=== PATIENT | female | born 1975 | race Caucasian/White ===

== ENCOUNTER 2016-10-17 20:49 | Emergency (ER) | payer OTHER ==
[2016-10-17] MEDS ORDERED: IOPAMIDOL 300 (61%) 100 ML VIAL IV ONE (20:50)
[2016-10-17] MEDS ORDERED: ONDANSETRON 4 MG/2ML 2 ML VIAL ONE (23:24)
[2016-10-17] MEDS ORDERED: LACTATED RINGERS 1,000 ML ONE (23:24)
[2016-10-17 23:34] LABS: ABSOLUTE NEUTROPHIL COUNT 6.1 K/mm3 (1.8-7.7); BASO # 0.1 K/mm3 (0.0-0.2); BASO % 0.8 % (0.2-1.0); EOS # 0.1 (0.0-0.5); EOS % 1.2 % (0.9-2.9); HEMATOCRIT 44.3 % (37.0-47.0); HEMOGLOBIN 15.1 gm/l (12.0-16.0); IMM NEUT% 0.3 % (0-1); LYMPH # 3.5 (1.0-4.8); LYMPH % 33.8 % (15-45); MEAN CELL VOLUME 81.9 fl (81.0-99.0); MEAN CORPUSCULAR HEMOGLOBIN 27.9 pg (27.0-31.0); MEAN CORPUSCULAR HGB CONC 34.1 g/dl (33.0-37.0); MEAN PLATELET VOLUME 10.1 fl (7.4-10.4); MONO # 0.6 (0.0-0.8); MONO % 5.8 % (4-12); NEUT % 58.1 % (43-75); PLATELET COUNT 371 K/mm3 (130-400); RED CELL DISTRIBUTION WIDTH 13.2 % (11.5-14.5)
[2016-10-17 23:42] LABS: URINE BILIRUBIN NEGATIVE (NEGATIVE); URINE BLOOD 2+ (NEGATIVE); URINE GLUCOSE (UA) 3+ (NEGATIVE); URINE LEUKOCYTE ESTERASE NEGATIVE (NEGATIVE); URINE NITRITE NEGATIVE (NEGATIVE); URINE PROTEIN NEGATIVE (NEGATIVE); URINE UROBILINOGEN NORMAL (0-1 mg/dl)
[2016-10-17 23:49] LABS: URINE APPEARANCE HAZY; URINE COLOR YELLOW
[2016-10-18 00:19] LABS: URINE BACTERIA FEW; URINE WBC 0-3 /hpf
[2016-10-18 00:30] LABS: ALB/GLOB RATIO 1.2 (>1.0); CALCIUM 9.5 mg/dL (8.6-10.3)
[2016-10-18] MEDS ORDERED: HYDROMORPHONE HCL 0.5 MG/0.5 ML SYRINGE ONE (01:28)
[2016-10-18] MEDS ORDERED: ONDANSETRON 4 MG/2ML 2 ML VIAL ONE (02:24)
[2016-10-18] MEDS ORDERED: OXYCODONE HCL 5 MG TABLET ONE (03:01)
--- NOTE | 2016-10-18 07:52 | CT ---
EXAMINATION: Contrast enhanced CT scan of the abdomen and pelvis. CLINICAL INDICATION: Rectal bleeding. Right upper quadrant and left lower quadrant abdominal pain. COMPARISON: None TECHNIQUE: Oral contrast: None Following uneventful administration of 100 mL of Isovue 300, intravenously axial images were acquired from just above the domes of the diaphragm to the iliac crest. A CT scan of the pelvis was also obtained from the iliac crest to the initial tuberosities. Stacked axial, sagittal, and coronal images were reviewed. Findings: Examination exhibits mild diminished resolution due to patient body habitus. Abdomen CT: (Contrast-enhanced): The lung bases are clear and are without mass or pleural effusion. The liver exhibits diminished attenuation compatible with fatty infiltration. Mild sparing is noted adjacent to the gallbladder fossa. There is cholelithiasis. Large gallstones are noted centrally within the gallbladder lumen. No gross adjacent inflammatory stranding. There is no evidence of biliary obstruction. The spleen size and attenuation are within normal limits. The pancreas is normal in size and contours. No inflammatory stranding is identified. The pancreatic duct is unremarkable. The adrenals are unremarkable. Kidneys are without mass or hydronephrosis. Mild congenital lobulation is noted. The abdominal aorta unremarkable. There is no retroperitoneal adenopathy identified. The stomach is unremarkable. The visualized segments of small and large bowel are within normal limits. The osseous structures exhibit no displaced fracture. No lytic or blastic lesions are identified. Pelvic CT: (Contrast -enhanced): The distal ureters and bladder are unremarkable. Uterus is surgically absent. There are no worrisome adnexal masses. The ovaries are unremarkable for age. No adenopathy is identified. The distal abdominal aorta and iliac vessels are within normal limits. There is diverticulosis of the colon without evidence of acute arthritis. The appendix is unremarkable. Spondylosis changes of the lumbar spine are noted at L3-4 L4-5 and L5-S1. There is a small fat-containing periumbilical hernia. IMPRESSION: 1. No acute inflammatory or obstructive process is identified within the abdomen and pelvis. 2. Fatty infiltration liver. 3. Cholelithiasis without evidence of cholecystitis or biliary obstruction. 4. Mild congenital lobulation of the kidneys. 5. Diverticulosis without evidence of acute diverticulitis. 6. Small fat-containing. Periumbilical hernia. 7. Prior hysterectomy. 8. Normal appendix. 9. Spondylosis changes of the lumbar spine.
== END 2016-10-18 03:54 | disposition home or self-care (01) ==
LOC: ED 20:49
DX: K62.5 Hemorrhage of anus and rectum (principal); R11.2 Nausea with vomiting, unspecified; R19.7 Diarrhea, unspecified; E03.9 Hypothyroidism, unspecified; E11.9 Type 2 diabetes mellitus without complications; Z79.84 Long term (current) use of oral hypoglycemic drugs
CPT/HCPCS: 83690; 85025; 80053; 81001; 74177; 96375; 96376; 99284 ×2; 96374; 96361 ×2; A9270; J2405 ×2; J7120; Q9967; J1170